=== PATIENT | male | born 1990 | race Caucasian/White ===

== ENCOUNTER 2023-10-08 11:16 | Emergency (ER) | payer MEDICAID ==
[~2023-10-08] VITALS: Ht 165.1 cm; Wt 82.0 kg
[2023-10-08 11:36] VITALS: BP 174/133; PULSE 98; RESP 16; TEMP 97.8; O2SAT 98
[2023-10-08] MEDS ORDERED: ACET-2708 MT (14:56)
[2023-10-08] MEDS ORDERED: AMOX-494 MT (14:56)
[2023-10-08] MEDS ORDERED: IBUP-1525 MT (14:56)
== END 2023-10-08 16:13 | disposition home or self-care (01) ==
LOC: ER 13:05
DX: J02.9 Acute pharyngitis, unspecified (principal); I10 Essential (primary) hypertension; Z20.822 Contact with and (suspected) exposure to COVID-19
CPT/HCPCS: 87420; 87426; 87804; 99283